=== PATIENT | female | born 1990 | race Caucasian/White ===

== ENCOUNTER → 2023-11-05 07:25 | Outpatient (REF) | payer OTHER, SELFPAY | LOC: MRI 07:25 | PROVIDERS: ATTENDING PHYSICIAN Nurse Practitioner Family; FAMILY PHYSICIAN Family Medicine | DX: R93.89 Abnormal findings on diagnostic imaging of other specified body structures (principal) | CPT/HCPCS: 72197; A9575 ==

== ENCOUNTER 2024-01-09 17:40 | Inpatient (IN) | payer OTHER, SELFPAY ==
[2024-01-09] VITALS (7 sets, daily range): BP systolic 103–155; BP diastolic 66–98; BMI 44.4
[2024-01-09 13:42] LABS: % Basophils 0.2 % (0-2); % Eosinophils 0.2 % (0-6); % Immature Granulocytes 0.9 % (0-0.5); % Lymphocytes 2.3 % (20.5-51.1); % Monocytes 3.4 % (1.7-9.3); Absolute Immature Granulocytes 0.2 10^3/uL (0-0.05); Absolute Lymphocytes 0.4 10^3/uL (1.2-3.4); Absolute Monocytes 0.6 10^3/uL (0.1-0.6); Absolute Neutrophils 16.2 10^3/uL (1.4-6.5); Hematocrit 36.1 % (37.0-47.0); Hemoglobin 12.2 g/dL (12.0-16.0); Mean Corp Hgb Conc. 33.8 g/dL (33.0-37.0); Mean Corpuscular Hgb 27.9 pg (27.0-31.0); Mean Corpuscular Volume 82.6 fL (81.0-99.0); Mean Platelet Volume 11.3 fL (7.4-10.4); Nucleated Red Blood Cells % 0 %; Platelet Count 214 10^3/uL (130-400); Red Blood Cell Count 4.37 10^6/uL (4.20-5.40); Red Cell Dist. Width 14.5 % (11.5-14.5); White Blood Cell Count 17.5 10^3/uL (4.8-10.8)
[2024-01-09 13:53] LABS: HCG, Serum Qualitative Screen Negative
[2024-01-09 14:00] LABS: ALT (SGPT) 15 U/L (0-35); AST (SGOT) 21 U/L (14-36); Albumin 3.7 g/dl (3.5-5.0); Alkaline Phosphatase 95 U/L (38-126); Blood Urea Nitrogen 16 mg/dl (7-17); Calcium 9.8 mg/dl (8.4-10.2); Carbon Dioxide 23 mmol/L (22-30); Chloride 103 mmol/L (98-107); Glucose 109 mg/dl (70-99); Potassium 3.7 mmol/L (3.5-5.1); Sodium 135 mmol/L (135-145); Total Bilirubin 0.7 mg/dl (0.2-1.3); Total Protein 6.5 g/dl (6.3-8.2); eGFR > 60.00
[2024-01-09 14:06] LABS: Urine Albumin 1+ (Neg - Trace); Urine Bilirubin 1+ (Negative); Urine Character Clear (Clear); Urine Color Yellow; Urine Glucose Negative (Negative); Urine Ketone 3+ (Negative); Urine Leukocyte 1+ (Negative); Urine Nitrite Negative (Negative); Urine Occult Blood 2+ (Negative); Urine Urobilinogen Negative (Neg - 1+)
--- NOTE | 2024-01-09 14:32 | ED.GENMED ---
History of Present Illness
General
Chief Complaint: Flank Pain
Source: patient
Time Seen by Provider: 01/09/24 14:19
History of Present Illness
History of Present Illness:
33yoF with a history of hypertension and depression presenting with her for evaluation of flank pain. Patient reports developing urinary urgency and orange-colored urine about 6 days ago. Patient was on a vacation in [place] earlier this
week. She was in a pool 2 days ago when she had an abrupt onset of left flank pain. She reports associated nausea, vomiting, and fevers. Tmax 105. Patient was seen by her PCP yesterday and was diagnosed with pyelonephritis. She was given a
prescription for Bactrim. She has had 1 dose thus far but vomited shortly after taking this medication. Symptoms persisted today so she came to the ED for evaluation. Patient has a remote history of a kidney stone as a child. No known kidney
stones as an adult.
Past History
Past History
ED Past Medical History: None
ED Past Surgical History: Tonsilectomy and Other
Social History
Tobacco: Non-smoker
Alcohol: None
Drug: None
Phy Exam
Physical Exam
Physical Exam:
Appears fatigued, non-toxic
General Physical Exam
General age: appears stated age
General Skin: warm and dry
General Habitus: normal
General Mental: alert
Cardiovascular Exam
Cardiovascular Exam: no edema and tachycardia
Pulmonary Exam
Pulmonary Exam: lungs clear, no respiratory distress, no crackles and no wheezing
Gastrointestinal Exam
Gastrointestinal Exam: soft, non distended and other (+L CVA tenderness)
Palpation: left upper quadrant: Mild tenderness and left lower quadrant: Mild tenderness
Skin Exam
Skin Exam: normal color and warm/dry
Psychiatric Exam
Psychiatric Exam: normal mood/affect
Course
Orders/Labs/Results
Orders:
Orders
01/09/24 13:11
Electrocardiogram (*1) Urgent
Reason for Study: Tachycardia
EKG- Treatment ONCE
Test Result ONCE
01/09/24 13:25
CMP [Comprehensive Metabolic Panel] Urgent
Complete Blood Count/With Diff Urgent
, Serum Qualitative Screen [HCG, Serum Qualitative Screen] Urgent
Urinalysis Urgent
Date Specimen was Collected: 01/09/24
Time Specimen was Collected: 13:11
Urine Microscopic Urgent
Date Specimen was Collected: 01/09/24
Time Specimen was Collected: 13:11
01/09/24 14:30
0.9% Sodium Chloride 1000 ml [Nss] 1,000 ml IV BOLUS
Acetaminophen 1000MG/100Ml [Ofirmev] 1,000 mg in 100 ml IV ONCE
Acetaminophen IV Indication:: ED Narcotic Naive Pt-ONCE
HYDROmorphone [Dilaudid] 0.5 mg IV NOW STA
Ketorolac [Toradol] 15 mg IV NOW STA
Ondansetron Injectable [Zofran] 4 mg IV NOW STA
01/09/24 14:31
CT Abd/pelvis W Iv Cont Urgent
Comment:
Reason For Exam: L flank pain, sepsis
01/09/24 14:47
Blood Culture Urgent
RONALDO Source: Blood/Venous
Specimen Description:
01/09/24 14:48
Lactate Level [Lactic Acid] Urgent
01/09/24 Dinner
NPO
Allow oral meds: Yes
Allow clear liquids: No
NPO with Ice Chips: Yes
01/09/24 15:09
CefTRIAXone [Rocephin] 2,000 mg IV NOW STA
01/09/24 15:51
Sterile Water [Sterile Water For Injection] 10 ml .ROUTE .STK-MED ONE
01/09/24 16:36
Ondansetron Injectable [Zofran] 4 mg IV NOW STA
01/09/24 16:57
Admit/Transfer Patient As Directed
Co-Sign Provider:
Level of Care: Inpatient admission
Assign to:: Telemetry
Physician / Group: ana maria
Diagnosis: sepsis pyelonephritis
Reason for Telemetry: Arrhythmia
Date to Stop Telemetry: 01/12/24
Time to Stop Telemetry: 11:00
Reason for Hospitalization: pyelonephritis
Expected length of stay greater than two midnights?: Yes
ELOS- Estimated Length of Stay in days: 2
I certify the patient meets the requirements for IP care: Yes
Code Status As Directed
Resuscitation Status: Full Code
PRN Pain Medication Management As Directed
May give lesser potent ordered pain med per pt: Yes
preference::
Protocol:: Medication orders for pain may be administered in a
manner that supports deferring to patient preference
when the pt is:
- Requesting an ordered lesser potent pain medication.
Least to most potent pain medications are defined
as: acetaminophen < NSAID < tramadol < opioids
(morphine, oxycodone, hydromorphone).
- Requesting a lesser dose of the same medication IF
ORDERED.
- Requesting a less intrusive route of administration
if both routes are prescribed by the provider (PO <
IV).
01/09/24 18:20
Lorazepam [Ativan] 0.5 mg PO BIDPRN PRN
01/09/24 18:20
UROLOGY CONSULT Routine
Consulting Provider: Mina Harper
Was physician already notified: Yes
Activity As Directed
Activity Level: As Tolerated
Pneumatic Compression Sleeves As Directed
Type: Knee high
Vital Signs As Directed
Frequency: Per unit guidelines
DX Deep Vein Thrombosis Video Routine
01/09/24 18:30
0.9% Sodium Chloride 1000 ml [Nss] 1,000 ml IV 150 mls/hr
01/09/24 19:06
HYDROmorphone [Dilaudid] 0.5 mg IV Q4HPRN PRN
01/09/24 21:06
Acetaminophen [Tylenol] 650 mg PO Q4HPRN PRN
01/09/24 21:07
Ketorolac [Toradol] 15 mg IV Q6HPRN PRN
Ondansetron Injectable [Zofran] 4 mg IV Q6HPRN PRN
01/10/24 06:00
Complete Blood Count/With Diff IN AM
Comprehensive Metabolic Panel IN AM
01/10/24 08:00
Escitalopram Oxalate [Lexapro] 20 mg PO DAILY
Metoprolol Xl [Toprol Xl] 25 mg PO DAILY
01/10/24 16:00
CefTRIAXone [Rocephin] 1,000 mg IV Q24H
01/12/24 11:00
DC Protocol for Telemetry ONCE
Abnormal Lab Results
01/09/24
13:25
WBC 17.5 H 10^3/uL
(4.8-10.8)
Hct 36.1 L %
(37.0-47.0)
MPV 11.3 H fL
(7.4-10.4)
Abs Immat Gran (auto) 0.2 H 10^3/uL
(0-0.05)
Absolute Neuts (auto) 16.2 H 10^3/uL
(1.4-6.5)
Absolute Lymphs (auto) 0.4 L 10^3/uL
(1.2-3.4)
Immature Gran % 0.9 H %
(0-0.5)
Neutrophils % 93.0 H %
(42.2-75.2)
Lymphocytes % 2.3 L %
(20.5-51.1)
Creatinine 1.2 H mg/dL
(0.6-1.0)
Glucose 109 H mg/dl
(70-99)
Urine Ketones 3+ A
(Negative)
Urine Occult Blood 2+ A
(Negative)
Urine Bilirubin 1+ A
(Negative)
Ur Leukocyte Esterase 1+ A
(Negative)
Urine RBC 26-30 A /HPF
(0-2)
Urine WBC 30-40 A /HPF
(0-5)
Urine Bacteria Few A
(Negative)
Urine Albumin 1+ A
(Neg - Trace)
01/09/24 13:25
01/09/24 13:25
Vital Signs
Initial and Last Documented VS:
Initial Vital Signs
Temp Pulse Resp BP Pulse Ox
103.8 F H 148 18 155/98 99
01/09/24 13:05 01/09/24 13:05 01/09/24 13:05 01/09/24 13:05 01/09/24 13:05
Last Documented Vital Signs
Temp Pulse Resp BP Pulse Ox
99.0 F 109 18 129/79 99
01/09/24 18:24 01/09/24 18:24 01/09/24 18:24 01/09/24 18:24 01/09/24 18:24
MDM/Problems Addressed
Differential Diagnosis Includes:
33yoF here with L flank pain, vomiting, and fevers. Tmax 105. Started on Bactrim yesterday by PCP. She is febrile to 103.8 on arrival with HR of 148. BP stable. She is acutely non-toxic. +L CVA tenderness on exam. Differential diagnosis includes but
is not limited to: UTI, pyelonephritis, sepsis, renal abscess, infected kidney stone
Initial ED plan: Check CBC, CMP, lactate, HCG, UA, and CT abdomen. IV Toradol, Ofirmev, Zofran, Dilaudid, and fluid bolus for symptoms.
*Critical Care Note
Total Time (30-74mins, 75-104mins- exclusive of procedures): Not Applicable
Update Note
Update Note:
Labs reveal a leukocytosis with a white count of 17.5. Lactate normal at 1.2. Creatinine 1.2. UA shows 30-[address] shows evidence of pyelonephritis without abscess. Patient given IV Rocephin and was admitted for sepsis.
ED Attending Note
-
Portions of this chart may have been created with voice recognition software.� Occasional wrong word or��sound alike� substitutions may have occurred due to the inherent limitations of voice recognition software.
Discharge Plan
Departure
Patient Disposition: Admit
Date of Disposition: 01/09/24
Time of Disposition: 16:38
Presentation/result/management discussed w/ accepting MD/DO: Hospitalist
Discharge Problem:
Pyelonephritis, Sepsis
Interventions
Interventions:
*Risk Screen - Suicide Last Done: 01/09/24 15:00
*General Assessment Last Done: 01/09/24 15:00
*Neglect/Abuse Screening Last Done: 01/09/24 15:00
*ED COVID-19 Vaccine History Last Done: 01/09/24 18:25
*Nursing Disposition Last Done: 01/09/24 18:27
HQ-Qyyqxw-Iwjmieamyd Assessment Last Done: 01/09/24 15:00
ED-Female Genitourinary Assessment Last Done: 01/09/24 15:00
Discharge Date and Time
Discharge Date/Time: 01/09/24 18:28
[2024-01-09 15:05] LABS: Urine Mucus Many; Urine Squamous Cell >30 /LPF (Few)
[2024-01-09 15:06] LABS: Urine Amorphous Seen; Urine Red Blood Cell 26-30 /HPF (0-2)
[2024-01-09] MEDS: NSS 1000 IV ×2 (15:06→18:46)
[2024-01-09] MEDS: OFIRMEV 100 IV (15:06)
[2024-01-09] MEDS: DILAUDID 0.5 MG IV ×2 (15:06→20:22)
[2024-01-09 15:07] LABS: Urine Bacteria Few (Negative); Urine White Cell 30-40 /HPF (0-5)
[2024-01-09] MEDS: TORADOL 15 MG IV ×2 (15:07→23:31)
[2024-01-09] MEDS: ZOFRAN 4 MG IV ×3 (15:07→20:25)
[2024-01-09 15:28] LABS: Lactic Acid 1.2 mmol/L (0.7-2.0)
[2024-01-09] MEDS: ROCEPHIN 2000 MG IV (16:13)
--- NOTE | 2024-01-09 17:02 | HPS.HSE ---
Family Physician
-
Family Physician: Tobi Segundo
Chief Complaint
-
left flank pain
History of Present Illness
33-year-old female past medical history of kidney stone as a child, hypertension, depression, endometriosis, chronic sinusitis, presenting for flank pain. She developed urinary urgency and orange color urine 6 days ago. She has been on vacation in
[place] earlier this week. 2 days ago she had abrupt onset of left flank pain associated with nausea and vomiting and fever with maximum temperature of 105. She was seen by primary care physician yesterday and diagnosed with pyelonephritis. She
was given prescription for Bactrim and took 1 dose but vomited after taking this. She has not been able to eat in 2 days and not able to take her medications.
She denies smoking, alcohol use or any drugs such as marijuana.
Medical History
Past Medical History
Past Medical History: Reports Other ( kidney stone as a child, hypertension, depression, endometriosis, chronic sinusitis)
Past Surgical History: Reports Other ( Tonsillectomy, sinus surgery, deviated septum surgery, exploratory laparotomy)
Social History
Tobacco: Non-smoker
Alcohol: None
Drug: None
Family History
Family History: Not pertinent
Allergies / Home Medications
Allergies reflects when Allergies were last updated in [employer].
Home Medications with original date entered in [employer]
Allergy/Medication List:
Allergies
Allergy/AdvReac Type Severity Reaction Status Date / Time
No Known Allergies Allergy Verified 08/30/21 19:30
Home Medications
escitalopram oxalate 20 mg tablet (Lexapro) 20 mg PO DAILY 01/09/24
lorazepam 0.5 mg tablet 0.5 mg PO BIDPRN PRN anxiety 01/09/24
metoprolol succinate 25 mg tablet,extended release 24 hr (Toprol XL) 25 mg PO DAILY 01/09/24
semaglutide (weight loss) 1 mg/0.5 mL subcutaneous pen injector 0 mg SC MO 01/09/24
sulfamethoxazole 800 mg-trimethoprim 160 mg tablet (Bactrim DS) 1 tab PO BID 01/09/24
Review of Systems
-
History Source: Patient
A 12 point ROS was completed and negative except as noted: Yes
Constitutional: Reports No Symptoms
EENT: Reports No Symptoms
Respiratory: Reports No Symptoms
Cardiac: Reports No Symptoms
Abdomen/GI: Reports See HPI
: Reports See HPI
Musculoskeletal: Reports No Symptoms
Skin: Reports No Symptoms
Neurological: Reports No Symptoms
Endocrine: Reports No Symptoms
Hematologic/Lymphatic: Reports No Symptoms
Psych: Reports No Symptoms
Physical Exam
Vital Signs
Vital Signs
Temp Pulse Resp BP Pulse Ox
103.8 F H 148 18 155/98 99
01/09/24 13:05 01/09/24 13:05 01/09/24 13:05 01/09/24 13:05 01/09/24 13:05
Physical Exam
General: Well Developed, Well Nourished and No Apparent Distress
HEENT: NormoCephalic, Moist mucous membranes and Atraumatic
Respiratory: Clear
Cardiac: S1/S2 and Regular Rhythm; No Murmur or Rub
GI: Soft, Non Tender, Non Distended and Normal Bowel Sounds; No Organomegaly
Rectal: Deferred by Provider
Genito-urinary: Costovertebral angle tend (left )
Musculoskeletal: No Clubbing, No Cyanosis and No Edema
Skin: No Rash
Neuro: Nonfocal/grossly intact
Laboratory Results
-
01/09/24 13:25
01/09/24 13:25
Laboratory Results
Lactic Acid 1.2 mmol/L (0.7-2.0) 01/09/24 14:48
Total Bilirubin 0.7 mg/dl (0.2-1.3) 01/09/24 13:25
AST 21 U/L (14-36) 01/09/24 13:25
ALT 15 U/L (0-35) 01/09/24 13:25
Alkaline Phosphatase 95 U/L (38-126) 01/09/24 13:25
Data Reviewed
-
Lab Data: Labs Reviewed by me
Old Records: Reviewed
Impression/Plan
-
IMPRESSION:
PLAN:
# Severe sepsis (high-grade fever, tachycardia, leukocytosis ) secondary to left-sided pyelonephritis
# Nonobstructing 2.5 mm proximal left ureteral calculus
-EKG shows sinus tachycardia
-N.p.o. with ice chips
-Urine culture, blood culture
-IV fluids
-Ceftriaxone
-Tylenol, Toradol, Dilaudid, Zofran as needed
-urology consulted
# Acute kidney injury prerenal secondary to sepsis
-IV fluids
History of nephrolithiasis as a child
-No history of urological interventions
Essential hypertension
-Continue metoprolol
Anxiety/depression
-Continue Lexapro
-Continue Ativan
Endometriosis
Chronic sinusitis status post sinus surgery
Full code
DVT prophylaxis�SCDs
N.p.o.
--- NOTE | 2024-01-09 21:29 | CONS.URO ---
Consultation
-
Date/Time Consultation Requested: 01/09/24 1500
Date/Time Consultation Performed: 01/09/24 1600
Requesting Provider: ED
Performing Provider: Meredith
Reason for Consultation: left pyelonephritis, non-obstructing left renal stone
Medical History
History of Present Illness
33F w/ h/o nephrolithiasis @age 8 (passed spontaneously) presents w/ severe left flank pain.
Noted urinary frequency, urgency, and 'orange-colored' urine 6 days ago while on vacation in [place], [place].
2 days ago noted acute onset of left flank pain w/ N/V and fever to 105F.
Saw PCP yesterday - diagnosed w/ left pyelo and started on Bactrim DS.
Took 1 dose and vomited - unable to eat solid food x2 days or take medications.
Past Medical History
Past Medical History: HTN, Psychiatric (depression) and Other (nephrolithiasis, endometriosis, chronic sinusitis)
Past Surgical History: Other (tonsillectomy, sinus surgery, deviated septum, exploratory laparotomy)
Social History
Tobacco: Non-smoker
Alcohol: Occasional
Drug: None
Personal:
Living: With Family
Employment: Employed (mental health therapist)
Family History
Family History: Reviewed & Not Pertinent
Allergies/Home Medications
Allergies
Allergy/AdvReac Type Severity Reaction Status Date / Time
No Known Allergies Allergy Verified 08/30/21 19:30
Home Medications
�Medication �Instructions �Recorded �Confirmed �Type
escitalopram oxalate 20 mg tablet 20 mg PO DAILY 01/09/24 01/09/24 History
(Lexapro)
lorazepam 0.5 mg tablet 0.5 mg PO BIDPRN PRN anxiety 01/09/24 01/09/24 History
metoprolol succinate 25 mg 25 mg PO DAILY 01/09/24 01/09/24 History
tablet,extended release 24 hr
(Toprol XL)
semaglutide (weight loss) 1 mg/0.5 0 mg SC MO 01/09/24 01/09/24 History
mL subcutaneous pen injector
sulfamethoxazole 800 1 tab PO BID 01/09/24 01/09/24 History
mg-trimethoprim 160 mg tablet
(Bactrim DS)
Review of Systems
-
History Source: Patient
A 12 point Review of Systems was completed except as noted: Yes
Physical Exam
Vital Signs
Vital Signs
Temp Pulse Resp BP Pulse Ox
99.0 F 109 18 129/79 99
01/09/24 18:24 01/09/24 18:24 01/09/24 18:24 01/09/24 18:24 01/09/24 18:24
Lab / Testing Results
Laboratory Results
01/09/24 13:25
01/09/24 13:25
Physical Exam
General: Well Developed, Well Nourished, Fever and Poor Appetite
HEENT: Normocephalic and Atraumatic
Respiratory: Accessory Resp Muscle Use
Cardiac: S1/S2
Breast: Deferred by me
GI: Soft, Non Tender and Non Distended
Rectal: Deferred by Provider
Genito-urinary: Costovertebral Angle Tend
Musculoskeletal: No Edema
Skin: Warm and Dry
Neuro: AO x 3, No Motor Deficits and Nonfocal/Grossly Intact
Hematologic/Lymphatic: No Lymphadenopathy
Psych: Calm and Intact Judgement
Assessment / Plan
-
Acute left pyelonephritis
cUTI
Non-obstructing left renal pelvis stone
Leukocytosis
WBC >17
Cr 1.2
UA grossly positive for UTI
CTAP w/ IV contrast => peripheral hypoattenuation throughout the mid to upper pole of the left kidney with mild perinephric stranding, consistent with pyelonephritis. No abscess.
Tiny nonobstructing 2.5 mm proximal left ureteral calculus within the superior aspect of the renal pelvis.
No hydronephrosis.
Detailed review of CT imaging demonstrates small NON-OBSTRUCTING stone w/n renal pelvis (not ureter).
No evidence of left ureteral obstruction or left hydroureteronephrosis.
- IV antibiotics pending UCx S/S
- No indication for urologic intervention - CT findings c/w non-obstructing small left renal stone
- Trend fevers/WBC/Cr
- If failure to clinically improve w/n 24-48 hrs, repeat CTAP imaging indicated (r/o developing renal abscess or antegrade migration of stone into ureter)
Discussed at length w/ patient.
D/w Hospitalist.
Data Reviewed
-
Total Time Spent with Patient (in minutes): 45
CT Scan: Image personally visualized and interpreted, Report Reviewed by Me, Discussed with Physician and Discussed with Patient
Lab Data: Labs Reviewed, Discussed with Physician and Discussed with Patient
Old Records: Reviewed
[2024-01-09] MEDS: TYLENOL 650 MG PO (22:09)
[2024-01-10] MEDS: NSS 1000 IV ×3 (01:42→15:36)
[2024-01-10 03:15] VITALS: BP 125/80
[2024-01-10] MEDS: DILAUDID 0.5 MG IV ×3 (06:20→22:19)
[2024-01-10] MEDS: ZOFRAN 4 MG IV ×2 (06:20→14:23)
[2024-01-10 07:12] LABS: % Basophils 0.2 % (0-2); % Eosinophils 0.1 % (0-6); % Immature Granulocytes 0.6 % (0-0.5); % Lymphocytes 4.8 % (20.5-51.1); % Monocytes 4.7 % (1.7-9.3); % Neutrophils 89.6 % (42.2-75.2); Absolute Immature Granulocytes 0.1 10^3/uL (0-0.05); Absolute Lymphocytes 0.4 10^3/uL (1.2-3.4); Absolute Monocytes 0.4 10^3/uL (0.1-0.6); Absolute Neutrophils 7.7 10^3/uL (1.4-6.5); Hematocrit 31.6 % (37.0-47.0); Hemoglobin 10.6 g/dL (12.0-16.0); Mean Corp Hgb Conc. 33.5 g/dL (33.0-37.0); Mean Corpuscular Hgb 27.3 pg (27.0-31.0); Mean Corpuscular Volume 81.4 fL (81.0-99.0); Mean Platelet Volume 11.4 fL (7.4-10.4); Nucleated Red Blood Cells % 0 %; Platelet Count 190 10^3/uL (130-400); Red Blood Cell Count 3.88 10^6/uL (4.20-5.40); White Blood Cell Count 8.6 10^3/uL (4.8-10.8)
[2024-01-10 07:36] VITALS: BP 102/56
[2024-01-10 07:37] LABS: ALT (SGPT) 12 U/L (0-35); AST (SGOT) 19 U/L (14-36); Alkaline Phosphatase 90 U/L (38-126); Blood Urea Nitrogen 13 mg/dl (7-17); Calcium 8.1 mg/dl (8.4-10.2); Carbon Dioxide 18 mmol/L (22-30); Chloride 110 mmol/L (98-107); Estimated Creatinine Clearance 79 ml/min; Glucose 88 mg/dl (70-99); Potassium 3.7 mmol/L (3.5-5.1); Sodium 137 mmol/L (135-145); Total Bilirubin 0.5 mg/dl (0.2-1.3); Total Protein 5.6 g/dl (6.3-8.2); eGFR > 60.00
[2024-01-10] MEDS: TYLENOL 650 MG PO ×2 (07:41→15:48)
[2024-01-10] MEDS: LEXAPRO 20 MG PO (08:35)
[2024-01-10] MEDS: TOPROL XL 25 MG PO (08:35)
[2024-01-10 11:52] VITALS: BP 110/65
--- NOTE | 2024-01-10 13:45 | W.PN.HOSP.TC ---
Today's Communication/Plan
-
Continue IV ceftriaxone
Follow urine and blood cultures
Follow clinical status
Assessment / Plan
Assessment / Plan
#Severe sepsis secondary to Left pyelonephritis
#Nonobstructing 2.5 mm proximal left ureteral stone
#H/O nephrolithiasis -- age 8, spontaneously passed
-CT demonstrated stone in the left, proximal location, no hydronephrosis next, with evidence of pyelonephritis
-Was started on IV ceftriaxone upon admission, IVF and Tylenol as well
-Evaluated by urology, no plan for intervention at this time
-Will continue to follow cultures, IV ceftriaxone pending sensitivities
-Consider repeat CT A/P to rule out abscess if not improved over next 2 days
#AMANDO -- prerenal, mild
-Low suspicion for postrenal, small stone without signs of hydronephrosis
-Presented with creatinine 1.2, likely prerenal in the context of sepsis
-Renal function improving with IV fluids
-Continue IVF and trend creatinine to baseline
#HTN
-Home medications include metoprolol
-Blood pressure currently well-controlled
#Anxiety/depression
-Stable on home regimen of Lexapro and Ativan
#Endometriosis
#Chronic sinusitis s/p sinus surgery
DVT prophylaxis: SCDs
Diet: House
CODE STATUS: Full code
Anticipated Discharge: 24 - 48 hours
Subjective/Interval History
-
Date of Service: January 10, 2024
Seen and examined at the bedside. No acute events since admission.
She still complains of high fever, temperature was 102.5 this morning prior to Tylenol. Otherwise she states she feels better than when she presented to the hospital. Has some flank pain still.
She denies any chest pain, shortness of breath, rigors, nausea, vomiting, diarrhea, abnormal bleeding or bruising, paresthesias or weakness
Objective Data
-
Labs:
Laboratory Results
01/10/24
06:42
WBC 8.6
Hgb 10.6 L
Hct 31.6 L
Plt Count 190
Sodium 137
Potassium 3.7
Chloride 110 H
Carbon Dioxide 18 L
BUN 13
Creatinine 1.1 H
Glucose 88
Calcium 8.1 L D
Total Bilirubin 0.5
AST 19
ALT 12
Alkaline Phosphatase 90
Vital Signs:
Vital Signs
Temp Pulse Resp BP Pulse Ox
98.6 F 102 20 110/65 97
01/10/24 11:52 01/10/24 11:52 01/10/24 11:52 01/10/24 11:52 01/10/24 11:52
Review of Systems
-
History Source: Patient
All other systems: Reviewed and negative
Physical Exam
-
General: No Apparent Distress, Comfortable and Obese
HEENT: Normocephalic, Atraumatic, Moist Mucous Membranes and Anicteric
Respiratory: Clear to Auscultation and Non Labored Respirations; Negative Wheezes, Rales or Rhonchi
Cardiac: Regular Rhythm, S1/S2 and Tachycardic; Negative Murmur, Rub, JVD or Gallop
GI: Soft, Nontender, Nondistended and Normal Bowel Sounds
Genito-urinary: Costovertebral Angle Tend (Left-sided, mild flank pain associate)
Musculoskeletal: No Clubbing, No Cyanosis and No Edema
Skin: Warm and Dry; Negative Rash
Neuro: AO x 3, Nonfocal/Grossly Intact and Central Nerve's Intact
Data Reviewed
-
Labs: Labs Reviewed by me and Discussed with Patient
[2024-01-10 15:07] VITALS: BP 125/64
[2024-01-10] MEDS: ROCEPHIN 1000 MG IV (15:36)
[2024-01-10] MEDS: STERILE WATER FOR INJECTION 10 ML IV (15:36)
--- NOTE | 2024-01-10 16:27 | CM ---
CM met with Jazmyn at bedside today to complete IA. Jazmyn [place] [facility] [place] [address] [place] [address] 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
Jazmyn is currently being treated for pyelonephritis with IV abx; she is hopeful to be able to home tomorrow.
Plan: Discharge to home with no needs anticipated. Spouse will provide transport home at discharge.
PCP: Tobi Segundo
Pharmacy: [facility]
[2024-01-10] MEDS: TORADOL 15 MG IV (16:35)
[2024-01-10 19:05] VITALS: BP 106/60
[2024-01-10 23:01] VITALS: BP 133/92
[2024-01-11] MEDS: NSS 1000 IV
[2024-01-11 03:00] VITALS: BP 152/90
[2024-01-11] MEDS: TYLENOL 650 MG PO (03:17)
[2024-01-11] MEDS: ZOFRAN 4 MG IV ×3 (03:18→15:58)
[2024-01-11 07:10] VITALS: BP 142/85
[2024-01-11] MEDS: LEXAPRO 20 MG PO (08:03)
[2024-01-11] MEDS: TOPROL XL 25 MG PO (08:03)
[2024-01-11] MEDS: LR 1000 IV ×3 (08:03→22:32)
[2024-01-11 09:52] LABS: % Basophils 0.3 % (0-2); % Eosinophils 2.1 % (0-6); % Immature Granulocytes 1.3 % (0-0.5); % Lymphocytes 27.9 % (20.5-51.1); % Monocytes 14.2 % (1.7-9.3); % Neutrophils 54.2 % (42.2-75.2); Absolute Eosinophils 0.1 10^3/uL (0-0.7); Absolute Immature Granulocytes 0.1 10^3/uL (0-0.05); Absolute Lymphocytes 1.1 10^3/uL (1.2-3.4); Absolute Monocytes 0.5 10^3/uL (0.1-0.6); Absolute Neutrophils 2.1 10^3/uL (1.4-6.5); Hematocrit 29.5 % (37.0-47.0); Hemoglobin 9.9 g/dL (12.0-16.0); Mean Corp Hgb Conc. 33.6 g/dL (33.0-37.0); Mean Corpuscular Hgb 27.2 pg (27.0-31.0); Mean Platelet Volume 11.1 fL (7.4-10.4); Nucleated Red Blood Cells % 0 %; Platelet Count 209 10^3/uL (130-400); Red Blood Cell Count 3.64 10^6/uL (4.20-5.40); Red Cell Dist. Width 15.4 % (11.5-14.5); White Blood Cell Count 3.8 10^3/uL (4.8-10.8)
--- NOTE | 2024-01-11 10:23 | W.PN.HOSP.TC ---
Addendum entered and electronically signed by Geoff Juárez DO 01/11/24 13:36:
CDI: Morbid obesity without signs of alveolar hypoventilation
Original Note:
Today's Communication/Plan
-
Continue IV ceftriaxone empirically
Follow cultures for sensitivities
Follow-up BMP
Assessment / Plan
Assessment / Plan
#Severe sepsis secondary to Left pyelonephritis
#Nonobstructing 2.5 mm proximal left ureteral stone
#H/O nephrolithiasis -- age 8, spontaneously passed
-CT demonstrated stone in the left, proximal location, no hydronephrosis next, with evidence of pyelonephritis
-Was started on IV ceftriaxone upon admission, IVF and Tylenol as well
-Evaluated by urology, no plan for intervention at this time
-Will continue to follow cultures, IV ceftriaxone pending sensitivities
-Consider repeat CT A/P to rule out abscess if not improved over next 2 days
#AMANDO -- prerenal, mild
-Low suspicion for postrenal, small stone without signs of hydronephrosis
-Presented with creatinine 1.2, likely prerenal in the context of sepsis
-Renal function improving with IV fluids
-Continue IVF and trend creatinine to baseline
-Morning BMP pending, expect improvement but will follow-up
#HTN
-Home medications include metoprolol
-Blood pressure currently well-controlled
#Anxiety/depression
-Stable on home regimen of Lexapro and Ativan
#Endometriosis
#Chronic sinusitis s/p sinus surgery
DVT prophylaxis: SCDs
Diet: House
CODE STATUS: Full code
Anticipated Discharge: 24 - 48 hours
Subjective/Interval History
-
Date of Service: January 11, 2024
Seen and examined at the bedside. No acute events overnight.
She states that she feels well today, questions if she can go home. Denies fevers or chills which have improved. Denies chest pain, shortness of breath, nausea or vomiting, urinary issues, bleeding or bruising, paresthesias or weakness.
Culture sensitivities pending
Objective Data
-
Labs:
Laboratory Results
01/11/24
08:21
WBC 3.8 L
Hgb 9.9 L
Hct 29.5 L
Plt Count 209
Sodium Pending
Potassium Pending
Chloride Pending
Carbon Dioxide Pending
BUN Pending
Creatinine Pending
Glucose Pending
Calcium Pending
Vital Signs:
Vital Signs
Temp Pulse Resp BP Pulse Ox
97.9 F 91 18 142/85 98
01/11/24 07:10 01/11/24 07:10 01/11/24 07:10 01/11/24 07:10 01/11/24 07:10
I&O
01/10/24 01/11/24 01/12/24
06:59 06:59 06:59
Intake Total 1959
Balance 1959
Review of Systems
-
History Source: Patient
All other systems: Reviewed and negative
Physical Exam
-
General: Well Nourished, No Apparent Distress, Comfortable and Obese
HEENT: Normocephalic, Atraumatic, Moist Mucous Membranes and Anicteric
Respiratory: Clear to Auscultation and Non Labored Respirations
Cardiac: Regular Rhythm and S1/S2; Negative Murmur, Rub or Gallop
GI: Soft, Nontender, Nondistended and Normal Bowel Sounds
Genito-urinary: Costovertebral Angle Tend (Left side, mild)
Musculoskeletal: No Clubbing, No Cyanosis and No Edema
Skin: Warm, Dry and Normal Turgor; Negative Rash or Jaundice
Neuro: AO x 3, Nonfocal/Grossly Intact and Central Nerve's Intact
Data Reviewed
-
Labs: Labs Reviewed by me and Discussed with Patient
[2024-01-11 10:30] LABS: Blood Urea Nitrogen 8 mg/dl (7-17); Calcium 7.4 mg/dl (8.4-10.2); Carbon Dioxide 19 mmol/L (22-30); Chloride 111 mmol/L (98-107); Estimated Creatinine Clearance 96 ml/min; Glucose 81 mg/dl (70-99); Sodium 139 mmol/L (135-145); eGFR > 60.00
[2024-01-11 11:02] VITALS: BP 146/98
--- NOTE | 2024-01-11 11:16 | CM ---
CM met with Jazmyn this AM at bedside. She is eager to return home today if able; bloodwork pending.
If discharged today, Jazmyn's will come to drive her home at discharge; her in-laws will stay home with her 3 children. Jazmyn is asking if she can get zofran for use at home which has been helpful to her here. TT to Dr. Juárez to make
him aware of request.
Plan: Discharge to home when medically cleared; await C&S for decision making.
--- NOTE | 2024-01-11 12:25 | PN.CDI ---
CDI
- -
CDI:
Physician Documentation Request
Admit Date: 01/09/24 17:40
Dear Doctor Franck,
Please review the following and provide your response in the progress notes.
Clinical Indicators:
Height: 5 ft
Weight: 227 lb 6 oz
BMI:44.4
Other Clinical Notes: Progress notes 01/09 & 01/10,' Obese'
If possible, please provide an associated diagnosis related to the abnormal BMI, such as:
BMI > or = to 40
Overweight
Obesity:
Due to excess calories
Drug induced
Due to other cause
Severe or morbid obesity:
With alveolar hypoventilation (Obesity hypoventilation syndrome)
Without alveolar hypoventilation
- Other
Use of terms such as suspected, likely, concern for, or probable (associated with a specific diagnosis that is being evaluated, monitored, or treated as if it exists) are acceptable and can be coded in the inpatient setting, when documented at the
time of discharge.
Thank you,
Audrey Cohn RN
CDI Specialist
[place] [facility]
Please use your independent medical judgment in providing your response.
[2024-01-11 15:07] VITALS: BP 130/92
[2024-01-11] MEDS: ROCEPHIN 1000 MG IV (15:58)
[2024-01-11] MEDS: STERILE WATER FOR INJECTION 10 ML IV (15:58)
--- NOTE | 2024-01-11 16:20 | W.PN.UPDATE ---
Update Note
Progress Note Update
Alerted by nursing at 1615 that patient was complaining of mild chest tightness worse with inspiration, constipation, headache. I was immediately available at the bedside to evaluate the patient. EKG showed normal sinus rhythm without any ST
changes or signs of right ventricular strain. Patient states she feels fairly well despite the symptoms. She has been ambulating to bathroom and elsewhere over hospital stay. SCDs prescribed. On examination she has regular tachycardia with heart
rate near 100, no adventitious pulmonary sounds, no calf swelling Homans' sign negative (even though not very sensitive). Cannot rule out DVT or PE at this time however suspicion is low. Has just recovered from AMANDO, may still be sensitive to
iodine contrast from renal perspective
Plan:
-Will order troponin for now, with 1 repeat in 6 hours
-Transition from SCDs to Lovenox for DVT prophylaxis
-Monitor, consider CTA for worsening chest pain, tachycardia, or hypoxemia
-Ordered docusate and senna for constipation
-Toradol as needed for headaches
--- NOTE | 2024-01-11 16:27 | PTCARENOTE ---
patient reporting nausea, and constipation. requesting zofran and stool softener. also reporting headache , mild cough and chest tightness with deep inspiration. No resp distress noted,no calf tenderness or edema noted, patient denies SOB. 12 lead
ECG completed, vitals noted. Dr Juárez on unit and update on above. Orders noted. patient updated with new orders. plan of care on going.
[2024-01-11] MEDS: TORADOL 15 MG IV ×2 (16:37→22:41)
[2024-01-11] MEDS: SENOKOT-S 1 TABLET PO (16:37)
[2024-01-11] MEDS: LOVENOX 40 MG SC (16:37)
[2024-01-11 17:42] LABS: Troponin I < 0.012 ng/ml
[2024-01-11 19:25] VITALS: BP 134/85
[2024-01-11] MEDS: DILAUDID 0.5 MG IV (21:09)
[2024-01-11 23:05] VITALS: BP 147/92
[2024-01-11 23:39] LABS: Troponin I < 0.012 ng/ml
[2024-01-12 00:23] VITALS: BP 147/92
[2024-01-12 03:23] VITALS: BP 149/98
[2024-01-12 05:49] VITALS: BP 150/103
[2024-01-12] MEDS: LR 1000 IV (06:03)
[2024-01-12 06:08] LABS: % Basophils 0.7 % (0-2); % Eosinophils 3.3 % (0-6); % Immature Granulocytes 1.7 % (0-0.5); % Lymphocytes 30.6 % (20.5-51.1); % Monocytes 17.9 % (1.7-9.3); % Neutrophils 45.8 % (42.2-75.2); Absolute Eosinophils 0.2 10^3/uL (0-0.7); Absolute Immature Granulocytes 0.1 10^3/uL (0-0.05); Absolute Lymphocytes 1.7 10^3/uL (1.2-3.4); Absolute Neutrophils 2.5 10^3/uL (1.4-6.5); Hematocrit 28.9 % (37.0-47.0); Hemoglobin 9.9 g/dL (12.0-16.0); Mean Corp Hgb Conc. 34.3 g/dL (33.0-37.0); Mean Corpuscular Hgb 27.2 pg (27.0-31.0); Mean Corpuscular Volume 79.4 fL (81.0-99.0); Mean Platelet Volume 10.9 fL (7.4-10.4); Nucleated Red Blood Cells % 0 %; Platelet Count 233 10^3/uL (130-400); Red Blood Cell Count 3.64 10^6/uL (4.20-5.40); Red Cell Dist. Width 15.3 % (11.5-14.5); White Blood Cell Count 5.4 10^3/uL (4.8-10.8)
[2024-01-12 06:29] LABS: Blood Urea Nitrogen 5 mg/dl (7-17); Calcium 8.1 mg/dl (8.4-10.2); Carbon Dioxide 25 mmol/L (22-30); Chloride 107 mmol/L (98-107); Estimated Creatinine Clearance 96 ml/min; Glucose 98 mg/dl (70-99); Potassium 3.8 mmol/L (3.5-5.1); Sodium 138 mmol/L (135-145); eGFR > 60.00
[2024-01-12 07:10] VITALS: BP 144/88
[2024-01-12] MEDS: LEXAPRO 20 MG PO (09:07)
[2024-01-12] MEDS: TOPROL XL 25 MG PO (09:08)
[2024-01-12] MEDS: NSS 500 IV (09:09)
[2024-01-12] MEDS: TORADOL 15 MG IV (09:17)
[2024-01-12] MEDS: SENOKOT-S 1 TABLET PO (09:17)
[2024-01-12] MEDS: ZOFRAN 4 MG IV (09:18)
--- NOTE | 2024-01-12 10:44 | W.PN.HOSP.TC ---
Today's Communication/Plan
-
Transition to oral ciprofloxacin
Discharge
Assessment / Plan
Assessment / Plan
#Severe sepsis secondary to Left pyelonephritis
#Nonobstructing 2.5 mm proximal left ureteral stone
#H/O nephrolithiasis -- age 8, spontaneously passed
-CT demonstrated stone in the left, proximal location, no hydronephrosis next, with evidence of pyelonephritis
-Final culture results showed E. coli with resistance to gentamicin, ampicillin, Bactrim, tetracyclines.
-Was started on IV ceftriaxone upon admission, IVF and Tylenol as well
-Will transition to oral ciprofloxacin course to complete 14-day total of antibiotic
#AMANDO -- prerenal, mild
-Low suspicion for postrenal, small stone without signs of hydronephrosis
-Presented with creatinine 1.2, likely prerenal in the context of sepsis
-Resolved with IVF
#HTN
-Home medications include metoprolol
-Blood pressure currently well-controlled
#Anxiety/depression
-Stable on home regimen of Lexapro and Ativan
#Endometriosis
#Chronic sinusitis s/p sinus surgery
DVT prophylaxis: SCDs
Diet: House
CODE STATUS: Full code
Anticipated Discharge: Today
Subjective/Interval History
-
Date of Service: January 12, 2024
Seen and examined at the bedside. No acute events overnight. I saw her yesterday afternoon when she had mild pleuritic sounding chest pain which has since resolved. Remains afebrile, HD stable, and on room air. Headache is also improved.
She currently denies any chest pain, dyspnea, fevers or chills, nausea, vomiting, diarrhea, constipation, urinary issues, abnormal bleeding or bruising, paresthesias or weakness.
She requests to go home today to her 3 children. Final cultures have returned, will transition to oral antibiotics prior to discharge.
Objective Data
-
Labs:
Laboratory Results
01/12/24
05:55
WBC 5.4
Hgb 9.9 L
Hct 28.9 L
Plt Count 233
Sodium 138
Potassium 3.8
Chloride 107
Carbon Dioxide 25
BUN 5 L
Creatinine 0.9
Glucose 98
Calcium 8.1 L
Vital Signs:
Vital Signs
Temp Pulse Resp BP Pulse Ox
98.3 F 98 16 144/88 97
01/12/24 07:10 01/12/24 07:10 01/12/24 07:10 01/12/24 07:10 01/12/24 07:10
I&O
01/11/24 01/12/24 01/13/24
06:59 06:59 06:59
Intake Total 3460 / 3460 5160 / 5160
Balance 3460 / 3460 5160 / 5160
Review of Systems
-
History Source: Patient
All other systems: Reviewed and negative
Physical Exam
-
General: No Apparent Distress, Comfortable and Morbidly Obese; Negative Respiratory Distress
HEENT: Normocephalic, Atraumatic and Moist Mucous Membranes
Respiratory: Clear to Auscultation and Non Labored Respirations; Negative Accessory Resp Muscle Use
Cardiac: Regular Rhythm and S1/S2; Negative Murmur, Rub, JVD or Gallop
GI: Soft, Nontender, Nondistended and Normal Bowel Sounds
Genito-urinary: No Costovertebral Tender
Musculoskeletal: No Clubbing, No Cyanosis and No Edema
Skin: Warm and Dry; Negative Rash
Neuro: AO x 3, Nonfocal/Grossly Intact and Central Nerve's Intact
Data Reviewed
-
Labs: Labs Reviewed by me and Discussed with Patient
--- NOTE | 2024-01-12 10:53 | W.DCSUMMARY ---
Discharge Summary
Discharge Data
Date of Admission: 01/09/24
Date of Discharge: 01/12/24
-
Pending Results: No
Hospital Course
Presented to the hospital with left flank pain, fevers. Initial urinalysis showing evidence of urinary tract infection with CT scan on arrival showing a left-sided pyelonephritis. Started on IV ceftriaxone empirically. Blood cultures returned
positive for E. coli with sensitivity to fluoroquinolones, cephalosporins. Treated with Bactrim prior to hospital, culture was resistant for Bactrim. Clinically improved with resolution of fevers, reduced flank pain. Received IV fluids for
supportive care, no evidence of septic shock while in the hospital.
Following culture results she was transition from IV ceftriaxone to oral ciprofloxacin 500 mg twice daily for which she should complete 14 days of antibiotics for
Encouraged her to follow-up with her PCP within 7 days of discharge
Discharge Plan
-
Patient Disposition: Home (Routine Discharge)
Discharge Diagnosis/Procedures: E. coli septicemia
Pyelonephritis
Condition: Good
Diet: No restrictions
Activity: As tolerated
Additional Activity: Encourage aerobic exercise as tolerated
Driving Restrictions: No driving for 24 hours
Bathing Restrictions: None
Blood Work: None
Others Tests: None
Specialty Instructions: Weigh Daily- Call MD for wt gain/loss 3 lbs overnight/5 lbs in 1 week
Activity Restrictions/Additional Instructions:
Schedule a follow-up appointment with your family doctor within 7 days of discharge from the hospital
Instructions: Urinary tract infections in adults, Sepsis in adults
Referrals:
Tobi Segundo MD [Family Provider] -
Additional Discharge Medication Instructions: Take ciprofloxacin 500 mg twice daily for 10 days after discharge
Prescriptions:
New
ciprofloxacin HCl [Cipro] 500 mg tablet
500 mg PO Q12H 10 Days Qty: 20 0RF
Continued
lorazepam 0.5 mg Tablet
0.5 mg PO BIDPRN PRN (Reason: anxiety)
metoprolol succinate [Toprol XL] 25 mg Tablet Extended Release 24 Hr
25 mg PO DAILY
escitalopram oxalate [Lexapro] 20 mg Tablet
20 mg PO DAILY
semaglutide (weight loss) 1 mg/0.5 mL Pen Injector
0 mg SC MO
Discontinued
sulfamethoxazole-trimethoprim [Bactrim DS] 800-160 mg Tablet
1 tab PO BID
Discharge Orders:
Discharge Patient (As Directed); Ordered 01/12/24
Ordered By: Geoff Juárez
Discharge Date and Time
Print Language: GREEK
[2024-01-12 11:15] VITALS: BP 132/84
--- NOTE | 2024-01-12 15:15 | CM ---
Patinet with Dx sepsis secondary to Left pyelonephritis, Nonobstructing left ureteral stone.
Spoke with patient who was preparing for discharge.
The patient says she feels ready for discharge home today.
Her will drive her home.
No CM d/c needs identified.
Plan home today.
--- NOTE | 2024-01-14 14:51 | CM ---
Call from Alena/rep Adkins
Discharge date provided
== END 2024-01-12 14:09 | disposition home or self-care (01) | DRG 872 ==
LOC: 4 EAST ACU 17:40
PROVIDERS: Emergency Medicine; Physician Assistant; ADMITTING PHYSICIAN Hospitalist; ATTENDING PHYSICIAN Internal Medicine; CONSULT PHYSICIAN Surgery; EMERGENCY PHYSICIAN Student in an Organized Health Care Education/Training Program; FAMILY PHYSICIAN Family Medicine
DX: A41.51 Sepsis due to Escherichia coli [E. coli] (principal); N12 Tubulo-interstitial nephritis, not specified as acute or chronic; N20.2 Calculus of kidney with calculus of ureter; N17.9 Acute kidney failure, unspecified; Z68.41 Body mass index [BMI] 40.0-44.9, adult; R65.20 Severe sepsis without septic shock; I10 Essential (primary) hypertension; F41.9 Anxiety disorder, unspecified; F32.A Depression, unspecified; N80.9 Endometriosis, unspecified; J32.9 Chronic sinusitis, unspecified; E66.01 Morbid (severe) obesity due to excess calories
CPT/HCPCS: 74177; 80048; 80053; 81003; 81015; 83605; 84484; 84703; 85025; 87040; 87149; 87186; 87205; 93005; 96361; 96374; 96375; 96376; 99285; Q9967

== ENCOUNTER → 2024-02-27 09:27 | Outpatient (REF) | payer OTHER, SELFPAY | LOC: HWRAD 09:27 | PROVIDERS: ATTENDING PHYSICIAN Surgery; FAMILY PHYSICIAN Family Medicine | DX: N20.0 Calculus of kidney (principal) | CPT/HCPCS: 76770 ==